=== PATIENT | male | born 2000 | race Caucasian/White ===

== ENCOUNTER → 2019-12-20 11:44 | Outpatient (CLI) | payer BC, SELFPAY ==
--- NOTE | ~2019-12-20 | MR_ITS ---
EXAMINATION: MR hip RT wo con DATE: 12/20/2019 12:33 INDICATION: Right hip sprain presenting with 6-7 months of worsening pain and burning sensation after working out. TECHNIQUE: Magnetic resonance imaging (MRI) of the right hip was performed without intravenous contr ast. Sequences included full-field axial PD-weighted FS FSE and T1-weighted FSE, coronal of the pelvi s with PD-weighted FS FSE, small field of view of the right hip with axial PD-weighted FS FSE, sagit alie PD-weighted FS FSE and coronal PD weighted FS FSE. Additional radial T1-weighted FGR oriented ort hogonal to the acetabular rim were obtained for evaluation of the labrum. COMPARISON: None FINDINGS: Bones/labrum/cartilage: Alignment is normal. No fracture, avascular necrosis or pathologic marrow replacing process. There i s bilateral decreased anterosuperior femoral head/neck offset with hypertrophic impingement bumps at the anterosuperior femoral head neck junctions, left greater than right. There is irregular increased intrasubstance signal at the anterosuperior right acetabular labrum with more well-defined linear te ar at the superolateral labrum. There are some chondral fissuring without degenerative subchondral ch anges along the immediately adjacent cartilage at the anterosuperior to superolateral acetabulum. Sim ilar interest. A superolateral labral tears seen at the left acetabular labrum on the larger field of view images with mild cystic change at the superolateral rim of the left acetabulum suggesting overl jose manuel high-grade chondromalacia. Fluid: Symmetric physiologic amount of fluid within both hip joints. Small amount of fluid tracking cephalad along the right iliopsoas bursa consistent with mild bursitis. Soft tissues: Normal and symmetric muscle bulk and signal in the pelvis and visualized proximal thighs. The iliopso as, gluteal and proximal hamstring tendons are normal. Limited evaluation of visceral organs of the p nancy is unremarkable. No pathologically enlarged pelvic/inguinal lymphadenopathy. IMPRESSION: 1. Findings at both hips suggesting cam-type femoral acetabular impingement including decreased femor al head neck offset with likely anterosuperior impingement bumps and likely secondary tears of the an terosuperior to superolateral acetabular crispin and associated mild bilateral hip osteoarthritis. 2. Mild right iliopsoas bursitis. Reviewed, dictated and finalized at location A. IMPRESSION: 1. Findings at both hips suggesting cam-type femoral acetabular impingement inc luding decreased femoral head neck offset with likely anterosuperior impingemen t bumps and likely secondary tears of the anterosuperior to superolateral aceta bular crispin and associated mild bilateral hip osteoarthritis. 2. Mild right iliopsoas bursitis.
== END ==
PROVIDERS: PCP Family Medicine; Visit Provider Orthopaedic Surgery
DX: S73.191A Other sprain of right hip, initial encounter (principal); M71.58 Other bursitis, not elsewhere classified, other site
CPT/HCPCS: 73721

== ENCOUNTER 2021-01-31 17:05 | Emergency (ER) | payer BC, SELFPAY ==
--- NOTE | ~2021-01-31 | XR_ITS ---
EXAMINATION: XR foot LT min 3V DATE: 01/31/2021 17:56 INDICATION: Left foot injury and pain and swelling. TECHNIQUE: 4 views of left foot were obtained. COMPARISON: None. FINDINGS: Bone alignment is normal. There are chip fracture fragments lateral to cuboid with focal so ft tissue swelling. There is mild osteoarthritis of first metatarsophalangeal joint. IMPRESSION: 1. Chip fractures of lateral aspect of cuboid. Reviewed, dictated and finalized at location A. 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
[2021-01-31 17:43] VITALS: BP 119/59; PULSE 75; RESP 18; TEMP 36.1; O2SAT 100
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
== END 2021-01-31 19:14 | disposition home or self-care (01) ==
PROVIDERS: Emergency Provider Emergency Medicine; PCP Family Medicine
DX: S92.215A Nondisplaced fracture of cuboid bone of left foot, initial encounter for closed fracture (principal); X50.9XXA Other and unspecified overexertion or strenuous movements or postures, initial encounter; Y93.55 Activity, bike riding
CPT/HCPCS: 73630; 99213; G0463